=== PATIENT | female | born 1980 | race Two or more races ===

== ENCOUNTER 2017-07-14 06:01 | Day surgery (SDC) | payer OTHER | END 2017-07-14 10:45 | disposition home or self-care (01) | LOC: AMB-ENDOS 06:01 | DX: D13.1 Benign neoplasm of stomach (principal); K31.7 Polyp of stomach and duodenum; K44.9 Diaphragmatic hernia without obstruction or gangrene; K29.80 Duodenitis without bleeding; K29.60 Other gastritis without bleeding ==